=== PATIENT | male | born 1980 ===

== ENCOUNTER 2018-01-05 16:06 | Emergency (ER) | payer MEDICAID ==
[2018-01-05 16:13] VITALS: BMI 25.8
--- NOTE | 2018-01-05 17:11 | ED PDOC ---
HPI: Altered Mental Status Time Seen by Provider: 01/05/18 16:12 Chief Complaint (Provider): Altered Mental Status History Per: Patient History/Exam Limitations: Clinical Condition Onset/Duration Of Symptoms: Other (prior to arrival) Onset Of Symptoms: Cannot Confirm Onset Current Symptoms Are (Timing): Still Present Additional Complaint(s): 37 y/o male with a past medical history of PCP and marijuana use, who presents to the ED due to altered mental status prior to arrival. Four-point restraints used for safety. Patient responds to verbal stimuli, but is not interacting or answering questions. PMD: None provided Past Medical History Reviewed: Historical Data, Nursing Documentation, Vital Signs, Unable To Obtain - Medical History PMH: Hiatal Hernia Denies: Chronic Kidney Disease - Surgical History Surgical History: Hernia Repair - Family History Family History: States: Unknown Family Hx - Social History Current smoker - smoking cessation education provided: Yes Alcohol: Occasional Drugs: Cannabis, Other (PCP) - Immunization History Hx Tetanus Toxoid Vaccination: Yes Hx Influenza Vaccination: No Hx Pneumococcal Vaccination: No - Home Medications Home Medications: Ambulatory Orders Medication Instructions Recorded Naproxen [Naprosyn] 1 tab PO BID PRN #20 tab 12/14/17 - Allergies Allergies/Adverse Reactions: Allergies Allergy/AdvReac Type Severity Reaction Status Date / Time No Known Allergies Allergy Verified 12/14/17 11:10 Review of Systems Review Of Systems: ROS cannot be obtained secondary to pt's inabilty to answer questions. Physical Exam - Reviewed Nursing Documentation Reviewed: Yes Vital Signs Reviewed: Yes - Physical Exam Appears: Positive for: Non-toxic, No Acute Distress Cardiovascular/Chest: Positive for: Regular Rate, Rhythm. Negative for: Murmur Respiratory: Positive for: Normal Breath Sounds. Negative for: Respiratory Distress Neurologic/Psych: Positive for: Alert. Negative for: Oriented Medical Decision Making Medical Decision Making: Time: 16:22 Plan: --1:1 --sales and customer relations rep continuous --Restraints --Reevaluation --Case discussed with Dr. Taveras. [id number] - PT sleeping comfortable. HR 94 Oxygen 97% RR 20 Scribe Attestation: Documented by Rodriguez Skinner, acting as a scribe for Trista Victoria PA-C. Provider Scribe Attestation: All medical record entries made by the Scribe were at my direction and personally dictated by me. I have reviewed the chart and agree that the record accurately reflects my personal performance of the history, physical exam, medical decision making, and the department course for this patient. I have also personally directed, reviewed, and agree with the discharge instructions and disposition. Disposition - Clinical Impression Clinical Impression: PCP (phencyclidine) abuse - Patient ED Disposition Is Patient to be Admitted: No Counseled Patient/Family Regarding: Diagnosis, Need For Followup - Disposition Disposition: Routine/Home Disposition Time: 19:06 Condition: STABLE Additional Instructions: Please do not use PCP. Follow-up with your PCP. Instructions: Drug Abuse and Drug Addiction (DC)
[2018-01-05 17:25] VITALS: TEMP 98; O2SAT 99
[2018-01-05 19:36] VITALS: BP 125/70; PULSE 75; RESP 15
== END 2018-01-05 19:37 | disposition home or self-care (01) ==
LOC: H.ER 16:06
DX: F16.10 Hallucinogen abuse, uncomplicated (principal)